=== PATIENT | female | born 1995 | race Two or more races ===

== ENCOUNTER 2021-08-28 14:32 | Emergency (ER) | payer MEDICAID ==
[~2021-08-28] VITALS: Ht 152.4 cm; Wt 69.3 kg
[2021-08-28] MEDS ORDERED: IV NORMAL SALINE 1000ML BAG 1,380 ML IV SCH (15:45)
[2021-08-28] MEDS ORDERED: IV NORMAL SALINE 1000ML BAG 1,000 ML IV ONE ×2 (15:45→17:30)
[2021-08-28] MEDS ORDERED: ACETAMINOPHEN 500 MG TABLET PO ONE (15:45)
--- NOTE | 2021-08-28 16:15 | PHYS DOC ---
Past Medical History Past Surgical History: Smoking Status: Never Smoker Alcohol Use: None General Adult EDM: Chief Complaint: POST-OP PROBLEM HPI: HPI: Patient is a 26 year old female patient 2 para 2 presenting to the ED today with drainage. Patient states she had a done on July 23, 2021 in [place]. She states she noted drainage from her incision site from August 16, 2021. She states she contacted her TONGUE CARRIER in [place] who ordered cephalexin for her. She states she finished the medicine with no improvement. She states she went to [facility] August 26, 2021 and was started on cephalexin, she states there is no improvement. She is complaining of slight tenderness in the abdomen. Denies any fever. Denies any nausea or vomiting. Denies any vaginal discharge. She states she has not been sexually active since she delivered. Patient states she is breast-feeding. Review of Systems: Review of Systems: Constitutional: Denies fever or chills. [] Eyes: Denies change in visual acuity. [] HENT: Denies nasal congestion or sore throat. [] Respiratory: Denies cough or shortness of breath. [] Cardiovascular: Denies chest pain or edema. [] GI: Reports drainage, denies nausea, vomiting, bloody stools or diarrhea. [] : Denies dysuria. [] Musculoskeletal: Denies back pain or joint pain. [] Integument: Denies rash. [] Neurologic: Denies headache, focal weakness or sensory changes. [] Psychiatric: Denies depression or anxiety. [] Heart Score: C/O Chest Pain: N/A Risk Factors: Risk Factors: DM, Current or recent (<one month) smoker, HTN, HLP, family history of CAD, obesity. Risk Scores: Score 0 - 3: 2.5% MACE over next 6 weeks - Discharge Home Score 4 - 6: 20.3% MACE over next 6 weeks - Admit for Clinical Observation Score 7 - 10: 72.7% MACE over next 6 weeks - Early Invasive Strategies Current Medications: Current Medications Medications (Trade) Dose Ordered Sig/Rosalind Start Time Stop Time Status Last Admin Dose Admin Acetaminophen (Tylenol) 1,000 mg 1X ONCE 08/28/21 15:45 08/28/21 15:46 DC Sodium Chloride 1,000 ml @ 1,000 mls/hr 1X ONCE 08/28/21 15:45 08/28/21 16:44 Allergies: Allergies: Allergies Coded Allergies Type Severity Reaction Last Updated Verified No Known Drug Allergies 08/28/21 No Physical Exam: PE: Constitutional: Well developed, well nourished, no acute distress, non-toxic appearance. [] HENT: Normocephalic, atraumatic, bilateral external ears normal, oropharynx moist, no oral exudates, nose normal. [] Eyes: PERRLA, EOMI, conjunctiva normal, no discharge. [] Neck: Normal range of motion, no tenderness, supple, no stridor. [] Cardiovascular:Heart rate regular rhythm, no murmur [] Lungs & Thorax: Bilateral breath sounds clear to auscultation [] Abdomen: Abdominal flap noted, incision with trace amount of drainage on the right side, there are 2 slightly opened areas on the left side of the C- section, each is roughly 0.5 cm long with no drainage, no bleeding noted, no erythema, bowel sounds normal, soft, slight tenderness to bilateral lower abdomen, no masses, no pulsatile masses. [] Skin: See abdominal exam Back: No tenderness, no CVA tenderness. [] Extremities: No tenderness, no cyanosis, no clubbing, ROM intact, no edema. [] Neurologic: Alert and oriented X 3, normal motor function, normal sensory function, no focal deficits noted. [] Psychologic: Affect normal, judgement normal, mood normal. [] Current Patient Data: Labs: Laboratory Tests Test 08/28/21 15:29 POC Urine HCG, Qualitative Hcg negative (Negative) Vital Signs: Vital Signs Date Time Temp Pulse Resp B/P (MAP) Pulse Ox O2 Delivery O2 Flow Rate FiO2 08/28/21 15:20 99.1 100 16 112/70 (84) 100 Room Air 99.1 EKG: EKG: [] Radiology/Procedures: Radiology/Procedures: []PROCEDURE: CT ABD PELV W/ IV CONTRST ONLY Examination: CT of the abdomen pelvis with IV contrast HISTORY: History of incision draining pus COMPARISON: None available TECHNIQUE: Axial CT images of the abdomen pelvis with IV contrast. Coronal and sagittal reformats are performed Exposure: One or more of the following individualized dose reduction techniques were utilized for this examination: 1. Automated exposure control 2. Adjustment of the mA and/or kV according to patient size 3. Use of iterative reconstruction technique FINDINGS: Mild bibasilar lung atelectasis or infiltrates. The liver, spleen, adrenals grossly appears unremarkable. The gallbladder is mildly distended. The stomach is mildly distended. The visualized pancreas grossly appears unremarkable. Small bowel is nondilated. The appendix is within normal limits of dimension. There is a small appendicolith measuring 3 mm in the appendix. Feces and gas noted in the colon. The bilateral kidneys enhance symmetrically. Urinary bladder is mildly distended. There is mild stranding identified in the left anterior abdominal wall abutting the left rectus abdominis muscle could be scarring or secondary to recent surgery or subtle inflammation. No evidence of lytic bony destructive lesion. IMPRESSION: 1. Mild stranding identified in the left anterior abdominal wall abutting the left rectus abdominis muscle could be scarring or secondary to recent surgery or subtle inflammation. 2. Small appendicolith measuring 3 mm in the appendix. 3. Mild bibasilar lung atelectasis or infiltrates. Electronically signed by: Hiro David MD (08/28/2021 6:00 PM) [id number] DICTATED and SIGNED BY: HIRO DAVID MD DATE: 08/28/21 [id number] 0 Course & Med Decision Making: Course & Med Decision Making Pertinent Labs and Imaging studies reviewed. (See chart for details) This is a 26-year-old female patient presenting to the ED today with a drainage that began on August 16, 2021. Patient had delivery on July 23, 2021 in [place]. She has taken 2 doses of cephalexin with no improvement to the drainage. Dr. Silverman evaluated patient. Vitals on arrival to the ED temperature 99.1, heart rate 100, respirations 16 on room air, blood pressure 112/70, O2 sats 100%. CBC CMP with no acute findings. Lactic is normal. CT of the abdomen and pelvis with IV contrast was noted mild stranding identified in the left anterior abdominal wall abutting the left rectus abdominis muscle could be scarring or secondary to recent surgery or subtle inflammation. Small appendicolith measuring 3 mm in the appendix. Mild bibasilar lung atelectasis or infiltrates. Spoke with Dr. Ocampo TONGUE CARRIER, he stated patient can follow-up with her own TONGUE CARRIER if she is going home anytime soon if not she can follow-up with him in his clinic. He stated we do not need to change patient to any antibiotics. Rupa Disclaimer: Rupa Disclaimer: This electronic medical record was generated, in whole or in part, using a voice recognition dictation system. Departure Departure Impression: Primary Impression: Wound infection following section, Disposition: HOME / SELF CARE / HOMELESS Condition: STABLE Referrals: NO PCP (PCP) DEBBIE OCAMPO MD Please follow-up with your TONGUE CARRIER or the provided TONGUE CARRIER in the next 1 to 2 weeks Patient Instructions: Incision and Drainage, Care After Additional Instructions: You were evaluated in the emergency room for incision drainage from a . Please keep the area clean and dry. Please follow-up with the provided TONGUE CARRIER in the next 1 to 2 weeks. Please come back to the ED at any point symptoms worsen. GREGORY PUCKETT VIDEO CLERK Aug 28, 2021 16:15
[2021-08-28 17:11] LABS: BASO # 0.1 x10^3/uL (0.0-0.2); BASO % 1 % (0-3); EOS # 0.2 x10^3/uL (0.0-0.7); EOS % 3 % (0-3); HEMATOCRIT 33.4 % (36.0-47.0); HEMOGLOBIN 10.9 g/dL (12.0-15.5); LYMPH # 2.6 x10^3/uL (1.0-4.8); LYMPH % 30 % (24-48); MEAN CORPUSCULAR HEMOGLOBIN 28 pg (25-35); MEAN CORPUSCULAR HGB CONC 33 g/dL (31-37); MEAN CORPUSCULAR VOLUME 87 fL (79-100); MONO # 0.7 x10^3/uL (0.0-1.1); MONO % 8 % (0-9); NEUT % 59 % (31-73); PLATELET COUNT 260 x10^3/uL (140-400); RED BLOOD COUNT 3.85 x10^6/uL (3.50-5.40); RED CELL DISTRIBUTION WIDTH 15.6 % (11.5-14.5); WHITE BLOOD COUNT 8.6 x10^3/uL (4.0-11.0)
[2021-08-28] MEDS ORDERED: IOHEXOL 300 MG/ML 100ML VIAL. IV ONE (17:15)
[2021-08-28 17:22] LABS: CALCIUM 9.1 mg/dL (8.5-10.1); CREATININE 0.7 mg/dL (0.6-1.0); GFR 100.4; POTASSIUM 3.8 mmol/L (3.5-5.1)
[2021-08-28 17:28] LABS: ALBUMIN 3.7 g/dL (3.4-5.0); ALBUMIN/GLOBULIN RATIO 0.8 (1.0-1.7); TOTAL BILIRUBIN 0.2 mg/dL (0.2-1.0); TOTAL PROTEIN 8.1 g/dL (6.4-8.2)
--- NOTE | 2021-08-28 18:02 | RAD ---
Examination: CT of the abdomen pelvis with IV contrast HISTORY: History of incision draining pus COMPARISON: None available TECHNIQUE: Axial CT images of the abdomen pelvis with IV contrast. Coronal and sagittal reformats are performed Exposure: One or more of the following individualized dose reduction techniques were utilized for thi s examination: 1. Automated exposure control 2. Adjustment of the mA and/or kV according to patient size 3. Use of iterative reconstruction technique FINDINGS: Mild bibasilar lung atelectasis or infiltrates. The liver, spleen, adrenals grossly appears unremarka ble. The gallbladder is mildly distended. The stomach is mildly distended. The visualized pancreas gr ossly appears unremarkable. Small bowel is nondilated. The appendix is within normal limits of dimens ion. There is a small appendicolith measuring 3 mm in the appendix. Feces and gas noted in the colon. The bilateral kidneys enhance symmetrically. Urinary bladder is mildly distended. There is mild stranding identified in the left anterior abdominal wall abutting the left rectus abdom inis muscle could be scarring or secondary to recent surgery or subtle inflammation. No evidence of l ytic bony destructive lesion. IMPRESSION: 1. Mild stranding identified in the left anterior abdominal wall abutting the left rectus abdominis muscle could be scarring or secondary to recent surgery or subtle inflammation. 2. Small appendicolith measuring 3 mm in the appendix. 3. Mild bibasilar lung atelectasis or infiltrates. Electronically signed by: Hiro Stock MD (08/28/2021 6:00 PM) [id number]
[2021-08-28 19:40] VITALS: BP 104/63
== END 2021-08-28 19:48 | disposition home or self-care (01) ==
LOC: ER 14:32
DX: O86.01 Infection of obstetric surgical wound, superficial incisional site (principal)
CPT/HCPCS: 36415; 74177; 80053; 81025; 83605; 84145; 85025; 87040; 96360; 96361; 99285; J7030; Q9967